=== PATIENT | female | born 1950 | race Caucasian/White ===

== ENCOUNTER 2017-07-20 13:41 | Day surgery (SDC) | payer MEDICARE, OTHER ==
[~2017-07-20 13:41] MED LIST: ANAS1; Calcium 500 MG1 EACH; Coq-10100 MG; Salmon Oil 1,01 EACH; Super B Comple150 MG
[2017-07-20 15:48] LABS: Albumin, Body Fluid 1.4 g/dL; Lactate Dehydrogenase, Body Fl 60 U/L; Protein, Body Fluid 2.8 g/dL
== END 2017-07-20 22:55 | disposition home or self-care (01) ==
LOC: US 13:41
PROVIDERS: Internal Medicine Gastroenterology
PROC: 0W9G3ZZ Drainage of Peritoneal Cavity, Percutaneous Approach (ICD-10-PCS; principal; 2017-07-20)
DX: R18.8 Other ascites (principal)
CPT/HCPCS: 49083; 82042; 83615; 84157

== ENCOUNTER 2020-10-02 09:09 | Day surgery (SDC) | payer MEDICARE, OTHER ==
[~2020-10-02] VITALS: Ht 152.4 cm; Wt 70.0 kg
--- NOTE | 2020-10-02 09:59 | NUR ---
10/02/20 0959 Agatha Borrego 1 TRY RIGHT HAND BLEW
== END 2020-10-02 11:19 | disposition home or self-care (01) ==
LOC: ORSCSDS 09:09
PROVIDERS: Surgery
PROC: 0DJD8ZZ Inspection of Lower Intestinal Tract, Via Natural or Artificial Opening Endoscopic (ICD-10-PCS; principal; 2020-10-02 10:30)
DX: Z12.11 Encounter for screening for malignant neoplasm of colon (principal); Z86.010 Personal history of colon polyps; Z87.891 Personal history of nicotine dependence
CPT/HCPCS: J2704; J7120